=== PATIENT | male | born 1960 | race Native Hawaiian/Other Pacific Islander ===

== ENCOUNTER 2023-12-23 12:44 | Emergency (ER) | payer SELFPAY ==
[~2023-12-23] VITALS: Ht 154.9 cm; Wt 69.0 kg
[2023-12-23 12:45] VITALS: BP 168/82; TEMP 97.4; O2SAT 99
[2023-12-23] MEDS: METOCLOPRAMIDE INJ 10MG/2ML VIAL IV ONE (17:10)
[2023-12-23] MEDS: dexAMETHasone 20MG/5ML VIAL IV ONE (17:10)
[2023-12-23] MEDS: NS 1,000 ML IV ONE (17:10)
[2023-12-23] MEDS: diphenhydrAMINE 50MG/ML VIAL IV ONE (17:10)
[2023-12-23 17:26] LABS: BASO % 0.6 % (0.0-1.0); EOS # 0.1 10^3/uL (0.0-0.5); EOS % 2.5 % (0.0-3.0); HEMATOCRIT 46.8 % (42.0-52.0); HEMOGLOBIN 16.8 g/dl (13.5-17.5); LYMPH # 1.8 10^3/uL (1.5-5.0); LYMPH % 33.4 % (24.0-44.0); MEAN CORPUSCULAR HEMOGLOBIN 31.2 pg (27.0-33.0); MEAN CORPUSCULAR HGB CONC 35.9 g/dl (32.0-36.5); MONO # 0.5 10^3/uL (0.0-0.8); MONO % 9.1 % (2.0-8.0); NEUTROPHILS # 2.9 10^3/uL (1.5-8.5); NEUTROPHILS % 54.2 % (36.0-66.0); PLATELET COUNT, AUTOMATED 161 10^3/uL (150-450); RED BLOOD COUNT 5.38 10^6/uL (4.30-6.10); WHITE BLOOD COUNT 5.3 10^3/uL (4.0-10.0)
[2023-12-23 17:27] LABS: C REACTIVE PROTEIN QUANTITATIV < 0.40 MG/DL (<1.0)
[2023-12-23 17:29] LABS: BLOOD UREA NITROGEN 26 MG/DL (9-23); CALCIUM LEVEL 9.2 MG/DL (8.3-10.6); CARBON DIOXIDE LEVEL 28 MMOL/L (20-31); CHLORIDE LEVEL 106 MMOL/L (98-107); CREATININE FOR GFR 0.86 MG/DL (0.70-1.30); GLOMERULAR FILTRATION RATE > 60.0 (>49); GLUCOSE, FASTING 159 MG/DL (74-106); POTASSIUM SERUM 4.5 MMOL/L (3.5-5.1); SODIUM LEVEL 141 MMOL/L (136-145)
[2023-12-23 17:43] LABS: ERYTHROCYTE SEDIMENTATION RATE 2 mm/hr (0-20)
== END 2023-12-23 19:01 | disposition home or self-care (01) ==
LOC: M ED 12:44
DX: R51.9 Headache, unspecified (principal); I10 Essential (primary) hypertension
CPT/HCPCS: 70450; 80048; 85025; 85652; 86140; 96361; 96374; 96375; 99283; J1100; J1200; J2765

== ENCOUNTER → 2024-12-31 | Outpatient (RCR) | payer MEDICAID | LOC: M PT 12-09 13:46 | PROVIDERS: ATTEND Neuromusculoskeletal Medicine, Sports Medicine | DX: M75.02 Adhesive capsulitis of left shoulder (principal) ==

== ENCOUNTER → 2025-01-25 | Outpatient (CLI) | payer MEDICAID | LOC: M RAD 14:01 | PROVIDERS: ATTEND Student in an Organized Health Care Education/Training Program | DX: R59.0 Localized enlarged lymph nodes (principal) ==

== ENCOUNTER 2025-01-28 13:59 | Outpatient (RCR) | payer MEDICAID | END 2025-01-31 | LOC: M PT 13:59 | PROVIDERS: ATTEND Neuromusculoskeletal Medicine, Sports Medicine | DX: M75.02 Adhesive capsulitis of left shoulder (principal) ==

== ENCOUNTER 2025-02-06 17:02 | Inpatient (IN) | payer MEDICAID ==
[~2025-02-06] VITALS: Ht 165.1 cm; Wt 64.3 kg
[2025-02-06 17:44] LABS: BASO # 0.0 10^3/uL (0.0-0.2); BASO % 0.3 % (0.0-1.0); EOS # 0.0 10^3/uL (0.0-0.5); EOS % 0.3 % (0.0-3.0); LYMPH # 1.8 10^3/uL (1.5-5.0); LYMPH % 14.6 % (24.0-44.0); MONO # 0.8 10^3/uL (0.0-0.8); MONO % 6.8 % (2.0-8.0); NEUTROPHILS # 9.3 10^3/uL (1.5-8.5); NEUTROPHILS % 77.2 % (36.0-66.0); PLATELET COUNT, AUTOMATED 198 10^3/uL (150-450)
[2025-02-06 17:55] LABS: CALCIUM LEVEL 8.7 MG/DL (8.3-10.6); CARBON DIOXIDE LEVEL 13 MMOL/L (20-31); CHLORIDE LEVEL 106 MMOL/L (98-107); CK-MB VALUE MASS 1.0 NG/ML (<3.6); CREATININE FOR GFR 0.81 MG/DL (0.70-1.30); GLOMERULAR FILTRATION RATE > 90.0 (>49); POTASSIUM SERUM 4.6 MMOL/L (3.5-5.1); SODIUM LEVEL 141 MMOL/L (136-145)
[2025-02-06 17:56] LABS: CPK CREATINE PHOSPHOKINASE 27 U/L (46-171); MB/CK RELATIVE INDEX 3.70 (< OR =4)
[2025-02-06] MEDS ORDERED: ZONI50CA PO (18:06)
[2025-02-06] MEDS ORDERED: ORPH1TAB6 PO (18:06)
[2025-02-06] MEDS ORDERED: JANU100T PO (18:06)
[2025-02-06] MEDS ORDERED: SUMA25TA3 PO (18:06)
[2025-02-06] MEDS ORDERED: LOSA25TA13 PO (18:06)
[2025-02-06] MEDS ORDERED: FARX1TAB3 PO (18:06)
[2025-02-06] MEDS ORDERED: ROSU10TA61 PO (18:06)
[2025-02-06] MEDS ORDERED: FELO5TAB26 PO (18:06)
[2025-02-06] MEDS ORDERED: METF10004 PO (18:06)
[2025-02-06] MEDS ORDERED: [UNRECOGNIZED DRUG - CODE] XX (18:06)
[2025-02-06 18:25] LABS: VENOUS BASE EXCESS -16.2 (-2.0-2.0); VENOUS HCO3 12.4 MMOL/L (23.0-27.0); VENOUS O2 SATURATION 67.9 % (60.0-80.0); VENOUS PARTIAL PRESSURE CO2 39.0 mmHg (38.0-50.0); VENOUS PARTIAL PRESSURE O2 35.8 mmHg (30.0-50.0); VENOUS PH 7.121 UNITS (7.330-7.430); VENOUS STANDARD HCO3 12.2 MMOL/L; VENOUS TOTAL CO2 13.6 MMOL/L (24.0-28.0)
[2025-02-06] MEDS ORDERED: ISOVUE-370 76% 100 ML VIAL As Ordered ONE (18:38)
[2025-02-06 19:02] LABS: CK-MB VALUE MASS < 1.0 NG/ML (<3.6)
[2025-02-06 19:04] LABS: CPK CREATINE PHOSPHOKINASE 30 U/L (46-171)
[2025-02-06] MEDS: ONDANSETRON 4MG 2ML VIAL IV ONE (19:22)
[2025-02-06 19:46] LABS: ALT/SGPT 96 U/L (7.0-40); AST/SGOT 36 U/L (<34)
[2025-02-06] MEDS ORDERED: INSULIN IV RATE CHANGE DOCUMENTATION ML/HR XX SCH (20:00)
[2025-02-06] MEDS: D5W/0.9% SODIUM CHLORIDE 1,000 ML IV SCH (20:18)
[2025-02-06] MEDS: INSULIN REGULAR IN 0.9 % NACL 100 UNIT in IV 1 EA IV SCH ×2 (20:18→21:16)
[2025-02-06] MEDS ORDERED: MAALOX 30 ML SUSP *UDC PO PRN (20:30)
[2025-02-06] MEDS: DOCUSATE SODIUM 100 MG CAPSULE PO SCH (21:00)
[2025-02-06] MEDS: INSULIN IV RATE CHANGE DOCUMENTATION ML/HR XX SCH (21:24)
[2025-02-06 21:44] LABS: VENOUS BASE EXCESS -16.4 (-2.0-2.0); VENOUS HCO3 11.5 MMOL/L (23.0-27.0); VENOUS O2 SATURATION 96.1 % (60.0-80.0); VENOUS PARTIAL PRESSURE CO2 34.7 mmHg (38.0-50.0); VENOUS PARTIAL PRESSURE O2 95.2 mmHg (30.0-50.0); VENOUS PH 7.140 UNITS (7.330-7.430); VENOUS STANDARD HCO3 12.6 MMOL/L; VENOUS TOTAL CO2 12.6 MMOL/L (24.0-28.0)
[2025-02-06 22:09] LABS: OSMOLALITY SERUM 317 MOSM/KG (280-301)
[2025-02-06 22:14] LABS: CALCIUM LEVEL 8.0 MG/DL (8.3-10.6); CARBON DIOXIDE LEVEL 12 MMOL/L (20-31); CHLORIDE LEVEL 109 MMOL/L (98-107); CREATININE FOR GFR 0.67 MG/DL (0.70-1.30); GLOMERULAR FILTRATION RATE > 90.0 (>49); MAGNESIUM LEVEL 2.0 MG/DL (1.8-2.4); PHOSPHORUS LEVEL 3.3 MG/DL (2.4-5.1); POTASSIUM SERUM 4.5 MMOL/L (3.5-5.1); SODIUM LEVEL 142 MMOL/L (136-145)
[2025-02-06 22:30] VITALS: BP 145/77; TEMP 98.4; O2SAT 98
[2025-02-06 22:41] VITALS: BP 133/72; O2SAT 98
[2025-02-06 22:49] VITALS: BP 144/79; O2SAT 98
[2025-02-06 23:00] VITALS: BP 131/73; O2SAT 98
[2025-02-06] MEDS: ONDANSETRON 4MG 2ML VIAL IV SCH (23:06)
[2025-02-07] VITALS (15 sets, daily range): BP systolic 105–143; BP diastolic 57–80; TEMP 97.4–98.9; O2SAT 96–100
[2025-02-07 00:16] LABS: CALCIUM LEVEL 7.9 MG/DL (8.3-10.6); CARBON DIOXIDE LEVEL 15 MMOL/L (20-31); CHLORIDE LEVEL 111 MMOL/L (98-107); CREATININE FOR GFR 0.66 MG/DL (0.70-1.30); GLOMERULAR FILTRATION RATE > 90.0 (>49); MAGNESIUM LEVEL 2.0 MG/DL (1.8-2.4); PHOSPHORUS LEVEL 2.6 MG/DL (2.4-5.1); POTASSIUM SERUM 4.2 MMOL/L (3.5-5.1); SODIUM LEVEL 144 MMOL/L (136-145)
[2025-02-07 00:23] LABS: OSMOLALITY SERUM 312 MOSM/KG (280-301)
[2025-02-07] MEDS ORDERED: VITA100065 PO (00:51)
[2025-02-07] MEDS ORDERED: VITA200C21 PO (00:51)
[2025-02-07] MEDS ORDERED: B-122500 PO (00:51)
[2025-02-07] MEDS ORDERED: OMEG10002 PO (00:51)
[2025-02-07] MEDS ORDERED: HOME MED LIST COMPLETE! XX SCH (00:55)
[2025-02-07] MEDS: D5W/0.9% SODIUM CHLORIDE 1,000 ML IV SCH (01:13)
[2025-02-07 02:30] LABS: OSMOLALITY SERUM 306 MOSM/KG (280-301)
[2025-02-07 02:32] LABS: CALCIUM LEVEL 7.6 MG/DL (8.3-10.6); CARBON DIOXIDE LEVEL 16 MMOL/L (20-31); CHLORIDE LEVEL 113 MMOL/L (98-107); CREATININE FOR GFR 0.58 MG/DL (0.70-1.30); GLOMERULAR FILTRATION RATE > 90.0 (>49); MAGNESIUM LEVEL 2.0 MG/DL (1.8-2.4); PHOSPHORUS LEVEL 2.3 MG/DL (2.4-5.1); POTASSIUM SERUM 4.2 MMOL/L (3.5-5.1); SODIUM LEVEL 144 MMOL/L (136-145)
[2025-02-07 02:53] LABS: VENOUS BASE EXCESS -10.1 (-2.0-2.0); VENOUS HCO3 15.3 MMOL/L (23.0-27.0); VENOUS O2 SATURATION 99.3 % (60.0-80.0); VENOUS PARTIAL PRESSURE CO2 32.8 mmHg (38.0-50.0); VENOUS PARTIAL PRESSURE O2 235.7 mmHg (30.0-50.0); VENOUS PH 7.286 UNITS (7.330-7.430); VENOUS STANDARD HCO3 16.7 MMOL/L; VENOUS TOTAL CO2 16.3 MMOL/L (24.0-28.0)
[2025-02-07 04:17] LABS: CALCIUM LEVEL 7.5 MG/DL (8.3-10.6); CARBON DIOXIDE LEVEL 18 MMOL/L (20-31); CHLORIDE LEVEL 113 MMOL/L (98-107); CREATININE FOR GFR 0.60 MG/DL (0.70-1.30); GLOMERULAR FILTRATION RATE > 90.0 (>49); MAGNESIUM LEVEL 2.0 MG/DL (1.8-2.4); PHOSPHORUS LEVEL 2.2 MG/DL (2.4-5.1); POTASSIUM SERUM 4.1 MMOL/L (3.5-5.1); SODIUM LEVEL 145 MMOL/L (136-145)
[2025-02-07 04:31] LABS: OSMOLALITY SERUM 310 MOSM/KG (280-301)
[2025-02-07] MEDS: K-PHOS NEUTRAL 250 MG TABLET (SOD.PHOSPHATE/POT.PHOSPHATE) PO ONE (05:23)
[2025-02-07 05:43] LABS: VENOUS BASE EXCESS -9.1 (-2.0-2.0); VENOUS HCO3 18.5 MMOL/L (23.0-27.0); VENOUS O2 SATURATION 87.6 % (60.0-80.0); VENOUS PARTIAL PRESSURE CO2 46.3 mmHg (38.0-50.0); VENOUS PARTIAL PRESSURE O2 52.7 mmHg (30.0-50.0); VENOUS PH 7.220 UNITS (7.330-7.430); VENOUS STANDARD HCO3 17.1 MMOL/L; VENOUS TOTAL CO2 19.9 MMOL/L (24.0-28.0)
[2025-02-07 05:59] LABS: PLATELET COUNT, AUTOMATED 163 10^3/uL (150-450)
[2025-02-07 06:10] LABS: OSMOLALITY SERUM 308 MOSM/KG (280-301)
[2025-02-07 06:17] LABS: CALCIUM LEVEL 7.6 MG/DL (8.3-10.6); CARBON DIOXIDE LEVEL 20 MMOL/L (20-31); CHLORIDE LEVEL 114 MMOL/L (98-107); CREATININE FOR GFR 0.63 MG/DL (0.70-1.30); GLOMERULAR FILTRATION RATE > 90.0 (>49); MAGNESIUM LEVEL 2.0 MG/DL (1.8-2.4); PHOSPHORUS LEVEL 1.7 MG/DL (2.4-5.1); POTASSIUM SERUM 3.7 MMOL/L (3.5-5.1); SODIUM LEVEL 146 MMOL/L (136-145)
[2025-02-07 07:45] LABS: VENOUS BASE EXCESS -7.3 (-2.0-2.0); VENOUS HCO3 17.9 MMOL/L (23.0-27.0); VENOUS O2 SATURATION 98.2 % (60.0-80.0); VENOUS PARTIAL PRESSURE CO2 35.3 mmHg (38.0-50.0); VENOUS PARTIAL PRESSURE O2 112.5 mmHg (30.0-50.0); VENOUS PH 7.322 UNITS (7.330-7.430); VENOUS STANDARD HCO3 18.7 MMOL/L; VENOUS TOTAL CO2 18.9 MMOL/L (24.0-28.0)
[2025-02-07] MEDS ORDERED: GLUCAGON INJ 1 MG VIAL SC PRN (08:05)
[2025-02-07] MEDS ORDERED: DEXTROSE 50% 50 ML SYRINGE IV PRN (08:05)
[2025-02-07] MEDS ORDERED: GLUCOSE 4 GM CHEW PO PRN (08:05)
[2025-02-07 08:13] LABS: OSMOLALITY SERUM 310 MOSM/KG (280-301)
[2025-02-07 08:15] LABS: CALCIUM LEVEL 7.4 MG/DL (8.3-10.6); CARBON DIOXIDE LEVEL 19 MMOL/L (20-31); CHLORIDE LEVEL 116 MMOL/L (98-107); CREATININE FOR GFR 0.56 MG/DL (0.70-1.30); GLOMERULAR FILTRATION RATE > 90.0 (>49); MAGNESIUM LEVEL 1.9 MG/DL (1.8-2.4); PHOSPHORUS LEVEL 2.1 MG/DL (2.4-5.1); POTASSIUM SERUM 3.6 MMOL/L (3.5-5.1); SODIUM LEVEL 146 MMOL/L (136-145)
[2025-02-07] MEDS: INSULIN LISPRO (NovoLOG) PER UNIT SC SCH ×4 (08:56→20:06)
[2025-02-07] MEDS: KCL 20MEQ IN D5/0.45NS 1000ML 1,000 ML IV SCH (09:00)
[2025-02-07] MEDS: CYANOCOBALAMIN 500 MCG TAB PO SCH (09:37)
[2025-02-07] MEDS: PANTOPRAZOLE 40MG VIAL IV SCH (09:37)
[2025-02-07] MEDS: LOSARTAN 25 MG TAB PO SCH (09:38)
[2025-02-07] MEDS: HEPARIN SOD 5000 UNITS/ML 1 ML VIAL/SYRINGE SC SCH (09:56)
[2025-02-07 09:58] LABS: ALT/SGPT 60 U/L (7.0-40); AST/SGOT 20 U/L (<34)
[2025-02-07] MEDS: LanTUS (INSULIN GLARGINE INJ) 1 UNITS/0.01 ML SC SCH (10:02)
[2025-02-07] MEDS: POTASSIUM CHLORIDE 10MEQ SR TABLET PO ONE (11:17)
[2025-02-07] MEDS ORDERED: INSULIN LISPRO (NovoLOG) PER UNIT SC SCH (12:00)
[2025-02-07] MEDS ORDERED: ONDANSETRON 4MG 2ML VIAL IV PRN (12:00)
[2025-02-07] MEDS ORDERED: ONDANSETRON 4MG 2ML VIAL IV SCH (12:00)
[2025-02-07] MEDS ORDERED: GI COCKTAIL 50 ML BTL(HYOSCYAMINE/MAALOX/LIDOCAINE VISCOUS)(1:3:1) PO PRN (14:15)
[2025-02-07] MEDS: ASPIRIN 81 MG ENTERIC TABLET PO SCH (15:43)
[2025-02-07] MEDS: OMEGA-3 1000 MG CAPSULE PO SCH (15:43)
[2025-02-07] MEDS: ROSUVASTATIN 10 MG TAB PO SCH (15:43)
[2025-02-07] MEDS ORDERED: ZONI50CA11 PO (16:02)
[2025-02-07] MEDS ORDERED: SUMA50TA2 PO (16:03)
[2025-02-07] MEDS: ACETAMINOPHEN 325 MG TAB PO PRN (20:23)
[2025-02-07] MEDS ORDERED: LanTUS (INSULIN GLARGINE INJ) 1 UNITS/0.01 ML SC SCH (21:00)
[2025-02-08 04:29] VITALS: BP 129/76; TEMP 98.1; O2SAT 100
[2025-02-08 07:31] LABS: BASO # 0.0 10^3/uL (0.0-0.2); BASO % 0.6 % (0.0-1.0); EOS # 0.1 10^3/uL (0.0-0.5); EOS % 2.0 % (0.0-3.0); LYMPH # 1.1 10^3/uL (1.5-5.0); LYMPH % 22.9 % (24.0-44.0); MONO # 0.5 10^3/uL (0.0-0.8); MONO % 9.5 % (2.0-8.0); NEUTROPHILS # 3.2 10^3/uL (1.5-8.5); NEUTROPHILS % 64.6 % (36.0-66.0); PLATELET COUNT, AUTOMATED 130 10^3/uL (150-450)
[2025-02-08 07:46] LABS: ALT/SGPT 60 U/L (7.0-40); AST/SGOT 33 U/L (<34); CALCIUM LEVEL 7.9 MG/DL (8.3-10.6); CARBON DIOXIDE LEVEL 19 MMOL/L (20-31); CHLORIDE LEVEL 114 MMOL/L (98-107); CREATININE FOR GFR 0.54 MG/DL (0.70-1.30); GLOMERULAR FILTRATION RATE > 90.0 (>49); MAGNESIUM LEVEL 1.9 MG/DL (1.8-2.4); POTASSIUM SERUM 3.8 MMOL/L (3.5-5.1); SODIUM LEVEL 147 MMOL/L (136-145)
[2025-02-08] MEDS: SUCRALFATE SUSP 1GM/10ML UD PO SCH (08:28)
[2025-02-08] MEDS: LanTUS (INSULIN GLARGINE INJ) 1 UNITS/0.01 ML SC SCH (08:30)
[2025-02-08] MEDS: amLODIPine 5 MG TAB PO SCH (08:31)
[2025-02-08] MEDS: MOM 30 ML SUSPENSION UDC PO PRN (10:55)
[2025-02-08] MEDS: POTASSIUM CHLORIDE 10MEQ SR TABLET PO ONE (10:55)
[2025-02-08 11:33] LABS: PHOSPHORUS LEVEL 1.8 MG/DL (2.4-5.1)
[2025-02-08 12:00] VITALS: BP 150/76; TEMP 97.4; O2SAT 100
[2025-02-08 13:13] LABS: CALCIUM LEVEL 8.1 MG/DL (8.3-10.6); CARBON DIOXIDE LEVEL 26 MMOL/L (20-31); CHLORIDE LEVEL 112 MMOL/L (98-107); CREATININE FOR GFR 0.71 MG/DL (0.70-1.30); GLOMERULAR FILTRATION RATE > 90.0 (>49); POTASSIUM SERUM 3.8 MMOL/L (3.5-5.1); SODIUM LEVEL 148 MMOL/L (136-145)
[2025-02-08] MEDS: K-PHOS NEUTRAL 250 MG TABLET (SOD.PHOSPHATE/POT.PHOSPHATE) PO SCH (16:04)
[2025-02-08] MEDS ORDERED: LANTINJ4 SC (16:18)
[2025-02-08] MEDS ORDERED: BLOOKIT21 XX (16:20)
[2025-02-08] MEDS ORDERED: ALCOPAD25 TOP (16:20)
[2025-02-08] MEDS ORDERED: PEN-308 SC (16:20)
[2025-02-08] MEDS ORDERED: GLUC1TES2 XX (16:20)
[2025-02-08] MEDS ORDERED: LANC30MI XX (16:20)
[2025-02-08 20:34] VITALS: BP 130/66; TEMP 97.8; O2SAT 100
[2025-02-09 03:40] VITALS: BP 141/80; TEMP 97; O2SAT 100
[2025-02-09 07:56] LABS: BASO # 0.0 10^3/uL (0.0-0.2); BASO % 0.7 % (0.0-1.0); EOS # 0.1 10^3/uL (0.0-0.5); EOS % 2.9 % (0.0-3.0); LYMPH # 1.6 10^3/uL (1.5-5.0); LYMPH % 38.6 % (24.0-44.0); MONO # 0.4 10^3/uL (0.0-0.8); MONO % 9.3 % (2.0-8.0); NEUTROPHILS # 2.0 10^3/uL (1.5-8.5); NEUTROPHILS % 48.3 % (36.0-66.0); PLATELET COUNT, AUTOMATED 118 10^3/uL (150-450)
[2025-02-09] MEDS ORDERED: E-Z-GAS II EFFERVESCENT PACKET (SODIUM BICARB./CITRIC ACID/SIMETHICONE) As Ordered ONE (08:17)
[2025-02-09] MEDS ORDERED: E-Z-PAQUE 96% w/w SUSP 176 GM BTL As Ordered ONE (08:17)
[2025-02-09] MEDS ORDERED: E-Z-HD 98% w/w 340 GM SUSP BTL As Ordered ONE (08:17)
[2025-02-09 08:34] LABS: ALT/SGPT 65 U/L (7.0-40); AST/SGOT 41 U/L (<34); CALCIUM LEVEL 8.1 MG/DL (8.3-10.6); CARBON DIOXIDE LEVEL 27 MMOL/L (20-31); CHLORIDE LEVEL 108 MMOL/L (98-107); CREATININE FOR GFR 0.59 MG/DL (0.70-1.30); GLOMERULAR FILTRATION RATE > 90.0 (>49); MAGNESIUM LEVEL 2.0 MG/DL (1.8-2.4); PHOSPHORUS LEVEL 1.9 MG/DL (2.4-5.1); POTASSIUM SERUM 4.1 MMOL/L (3.5-5.1); SODIUM LEVEL 146 MMOL/L (136-145)
[2025-02-09] MEDS ORDERED: CARA1TAB6 PO (09:45)
[2025-02-09] MEDS ORDERED: PROT1TAB2 PO (09:45)
[2025-02-09] MEDS ORDERED: ASPI81TAEC PO (09:45)
[2025-02-09] MEDS: NEUTRA-PHOS 1.5 GM PACKET PO SCH (10:18)
[2025-02-09 12:00] VITALS: BP 140/70; TEMP 97.5; O2SAT 99
[2025-02-09 19:52] VITALS: BP 108/60; TEMP 97.3; O2SAT 99
[2025-02-10 03:29] VITALS: BP 113/74; TEMP 97.3; O2SAT 99
[2025-02-10 07:14] LABS: BASO # 0.0 10^3/uL (0.0-0.2); BASO % 0.7 % (0.0-1.0); EOS # 0.1 10^3/uL (0.0-0.5); EOS % 2.6 % (0.0-3.0); LYMPH # 1.1 10^3/uL (1.5-5.0); LYMPH % 35.0 % (24.0-44.0); MONO # 0.3 10^3/uL (0.0-0.8); MONO % 10.1 % (2.0-8.0); NEUTROPHILS # 1.6 10^3/uL (1.5-8.5); NEUTROPHILS % 51.3 % (36.0-66.0); PLATELET COUNT, AUTOMATED 113 10^3/uL (150-450)
[2025-02-10 07:30] VITALS: BP 125/66; TEMP 98.2; O2SAT 100
[2025-02-10 07:39] LABS: ALT/SGPT 66 U/L (7.0-40); AST/SGOT 36 U/L (<34); CALCIUM LEVEL 8.3 MG/DL (8.3-10.6); CARBON DIOXIDE LEVEL 29 MMOL/L (20-31); CHLORIDE LEVEL 106 MMOL/L (98-107); CREATININE FOR GFR 0.60 MG/DL (0.70-1.30); GLOMERULAR FILTRATION RATE > 90.0 (>49); MAGNESIUM LEVEL 1.7 MG/DL (1.8-2.4); POTASSIUM SERUM 3.6 MMOL/L (3.5-5.1); SODIUM LEVEL 145 MMOL/L (136-145)
[2025-02-10] MEDS ORDERED: LIDOCAINE 2% 100 MG/5 ML SDV (FOR ANES.) As Ordered ONE (09:55)
[2025-02-10 10:45] VITALS: BP 139/87; TEMP 98.3; O2SAT 100
[2025-02-10] MEDS: PANTOPRAZOLE 40MG TAB PO SCH (13:09)
[2025-02-10 13:11] VITALS: BP 139/76; O2SAT 100
[2025-02-10] MEDS: MAG SULF 1GM/100ML (MAG RUN) 1 GM in IV 1 EA IV ONE (13:12)
[2025-02-10] MEDS ORDERED: CARA1TAB6 PO (15:24)
[2025-02-10] MEDS ORDERED: PROT1TAB2 PO (15:24)
== END 2025-02-10 17:35 | disposition home or self-care (01) | DRG 420 ==
LOC: EDBD 17:02 → M ED 17:02 → EDSEX 17:02 → M ED INP 20:26 → M ICU 22:30 → M MS4PR 02-07 19:58
PROVIDERS: ADMIT Student in an Organized Health Care Education/Training Program; ATTEND Student in an Organized Health Care Education/Training Program
PROC: 0DB78ZX Excision of Stomach, Pylorus, Via Natural or Artificial Opening Endoscopic, Diagnostic (ICD-10-PCS; 2025-02-10)
PROC: 0DB48ZX Excision of Esophagogastric Junction, Via Natural or Artificial Opening Endoscopic, Diagnostic (ICD-10-PCS; principal; 2025-02-10 09:40)
DX: E11.10 Type 2 diabetes mellitus with ketoacidosis without coma (principal); E87.0 Hyperosmolality and hypernatremia; I10 Essential (primary) hypertension; M75.02 Adhesive capsulitis of left shoulder; R59.0 Localized enlarged lymph nodes; K20.90 Esophagitis, unspecified without bleeding; K29.70 Gastritis, unspecified, without bleeding; K29.80 Duodenitis without bleeding; R10.13 Epigastric pain; Z79.899 Other long term (current) drug therapy; Z90.49 Acquired absence of other specified parts of digestive tract; Z79.84 Long term (current) use of oral hypoglycemic drugs; G40.909 Epilepsy, unspecified, not intractable, without status epilepticus; E78.5 Hyperlipidemia, unspecified; E11.65 Type 2 diabetes mellitus with hyperglycemia; Z86.73 Personal history of transient ischemic attack (TIA), and cerebral infarction without residual deficits

== ENCOUNTER → 2025-02-22 | Outpatient (REF) | payer MEDICAID ==
[~2025-02-22] MED LIST: ALCOPAD25 TOP; ASPI81TAEC PO; B-122500 PO; BLOOKIT21 XX; CARA1TAB6 PO; FARX1TAB3 PO; FELO5TAB26 PO; GLUC1TES2 XX; JANU100T PO; LANC30MI XX; LANTINJ4 SC; LOSA25TA13 PO; METF10004 PO; OMEG10002 PO; ORPH1TAB6 PO; PEN-308 SC; PROT1TAB2 PO; ROSU10TA61 PO; SUMA25TA3 PO; SUMA50TA2 PO; VITA100065 PO; VITA200C21 PO; ZONI50CA PO; ZONI50CA11 PO; [UNRECOGNIZED DRUG - CODE] XX
[2025-02-22 16:45] LABS: ALT/SGPT 86 U/L (7.0-40); AST/SGOT 40 U/L (<34); CALCIUM LEVEL 9.0 MG/DL (8.3-10.6); CARBON DIOXIDE LEVEL 30 MMOL/L (20-31); CHLORIDE LEVEL 105 MMOL/L (98-107); CREATININE FOR GFR 0.69 MG/DL (0.70-1.30); GLOMERULAR FILTRATION RATE > 90.0 (>49); PHOSPHORUS LEVEL 2.8 MG/DL (2.4-5.1); POTASSIUM SERUM 4.1 MMOL/L (3.5-5.1); SODIUM LEVEL 144 MMOL/L (136-145)
[2025-02-22 17:26] LABS: HEPATITIS C VIRUS ABY INDEX 0.02 INDEX (<0.8)
[2025-02-25 14:42] LABS: HBsAG CONFIRM SCRN REACTIVE (NON-REACTIVE)
== END ==
LOC: M LAB REF 16:13
PROVIDERS: ATTEND Student in an Organized Health Care Education/Training Program
DX: E83.42 Hypomagnesemia (principal); R74.8 Abnormal levels of other serum enzymes

== ENCOUNTER → 2025-03-01 | Outpatient (REF) | payer MEDICAID ==
[2025-03-01 16:45] LABS: INR 0.96
[2025-03-01 17:09] LABS: BASO # 0.0 10^3/uL (0.0-0.2); BASO % 0.4 % (0.0-1.0); EOS # 0.1 10^3/uL (0.0-0.5); EOS % 1.5 % (0.0-3.0); LYMPH # 1.2 10^3/uL (1.5-5.0); LYMPH % 17.0 % (24.0-44.0); MONO # 0.5 10^3/uL (0.0-0.8); MONO % 7.8 % (2.0-8.0); NEUTROPHILS # 5.0 10^3/uL (1.5-8.5); NEUTROPHILS % 73.0 % (36.0-66.0); PLATELET COUNT, AUTOMATED 165 10^3/uL (150-450)
[2025-03-01 17:11] LABS: ALT/SGPT 73 U/L (7.0-40); AST/SGOT 30 U/L (<34); CALCIUM LEVEL 8.9 MG/DL (8.3-10.6); CARBON DIOXIDE LEVEL 28 MMOL/L (20-31); CHLORIDE LEVEL 104 MMOL/L (98-107); CHOLESTEROL LEVEL 100 MG/DL (<200); CHOLESTEROL RISK RATIO 2.18 (<5); CREATININE FOR GFR 0.71 MG/DL (0.70-1.30); GLOMERULAR FILTRATION RATE > 90.0 (>49); LDL CHOLESTEROL 42.7 MG/DL (<100); NON-HDL-C 54.3 MG/DL; POTASSIUM SERUM 4.5 MMOL/L (3.5-5.1); SODIUM LEVEL 141 MMOL/L (136-145); TRIGLYCERIDES LEVEL 58 MG/DL (<150)
[2025-03-01 17:30] LABS: ESTIMATED AVERAGE GLUCOSE 154.0 MG/DL (60-110)
[2025-03-01 17:31] LABS: CREATININE, URINE 41.6 MG/DL; MALB URINE SIEMENS 7.0 MG/L; MAU/CREAT RATIO 16.8 MCG/MG (0.0-30.0)
[2025-03-01 17:43] LABS: HIV 1&2 SCREEN NEGATIVE (NEGATIVE)
[2025-03-01 17:52] LABS: HEPATITIS C VIRUS ABY INDEX 0.02 INDEX (<0.8)
[2025-03-03 12:48] LABS: HEPATITIS A IgG TOTAL REACTIVE (NON-REACTIVE); HEPATITIS B CORE ANTIBODY IGG REACTIVE (NON-REACTIVE); HEPATITIS B SURF AB QUANT < 5 mIU/mL (> OR = 10)
[2025-03-04 14:07] LABS: HBsAG CONFIRM SCRN REACTIVE (NON-REACTIVE)
== END ==
LOC: M LAB REF 16:17
PROVIDERS: ATTEND Student in an Organized Health Care Education/Training Program
DX: R76.8 Other specified abnormal immunological findings in serum (principal); E78.5 Hyperlipidemia, unspecified; E11.9 Type 2 diabetes mellitus without complications; R80.9 Proteinuria, unspecified

== ENCOUNTER → 2025-03-18 | Outpatient (CLI) | payer MEDICAID ==
[~2025-03-18] MED LIST changes: +LIDOCAINE 1% MDV 20 ML VIAL SC ONE
[2025-03-18 07:20] VITALS: TEMP 97.3
[2025-03-18 08:17] VITALS: BP 157/77; O2SAT 100
== END ==
LOC: M IRPRO 07:06
PROVIDERS: ATTEND Student in an Organized Health Care Education/Training Program
DX: C83.34 Diffuse large B-cell lymphoma, lymph nodes of axilla and upper limb (principal); R59.0 Localized enlarged lymph nodes

== ENCOUNTER → 2025-04-12 | Outpatient (CLI) | payer MEDICAID ==
[~2025-04-12] MED LIST changes: -LIDOCAINE 1% MDV 20 ML VIAL SC ONE; -ROSU10TA61 PO; +ROSU10TA90 PO
== END ==
LOC: M PLARAD 07:57
PROVIDERS: ATTEND Internal Medicine Medical Oncology
DX: C85.10 Unspecified B-cell lymphoma, unspecified site (principal)
CPT/HCPCS: 78815; A9552